=== PATIENT | male | born 1950 | race Caucasian/White ===

== ENCOUNTER 2017-08-18 08:28 | Inpatient (IN) | payer OTHER ==
[~2017-08-18] VITALS: Ht 172.7 cm; Wt 107.2 kg
[2017-08-18] VITALS (7 sets, daily range): BP systolic 113–150; BP diastolic 75–93
--- NOTE | ~2017-08-18 | HC ---
[facility] [place] [address] CONSULTATION Name: ITZ FREEDMAN Room #: 213-P [facility] IN ..#: [id number] Admission: 08/18/17 Attend Phys: Krunal Michelle MD Discharge: Date of : 54 Report #: [id number] THIS REPORT FOR: //name// CC: Hiren Michelle [facility] Cardiology DATE OF SERVICE: 08/18/2017 REASON FOR CONSULTATION: Chest pain. HISTORY OF PRESENT ILLNESS: The patient is a 66-year-old gentleman with history of hypertension and recurrent atrial fibrillation and atrial flutter for which he has been maintained on high doses of propafenone. He has a history of heterozygous factor V Leiden with remote right calf vein deep venous thrombosis. He is now admitted with recurrent episodes of midsternal chest pain. He awakened around 6:30 this morning with a heartburn feeling. This radiated to both sides of his neck and to both arms. This pain lasted for about 30 minutes and resolved spontaneously. The pain recurred several times throughout the morning, each episode lasted between 10 and 20 minutes. One episode of pain was associated with diaphoresis. He was pain free upon arrival to the emergency department where an EKG demonstrated sinus bradycardia and no acute ST or T-wave changes. Troponin was 0.06. He was given a GI cocktail, although was pain free when this GI cocktail was administered. He has had no recurrences since his Emergency Room stay and is now admitted to the coronary care unit. He has had no recent episodes of atrial fibrillation. He thinks his last pharmacologic stress study was done within the past year. He was in a traumatic workplace injury about a year ago, June; he sustained shoulder injury and has had 2 shoulder operations, the most recent one 10 days ago. He is in a sling and immobilizer. There have been no heart failure symptoms. He denies recent paroxysms of atrial fibrillation. No history of near syncope or syncope. ALLERGIES: HE HAS MULTIPLE FOOD ALLERGIES LISTED IN THE MEDICAL RECORD. MEDICATIONS: Include lisinopril 10 mg daily, aspirin, Toprol-XL 75 mg daily, Singulair 10 mg daily, propafenone immediate release 225 mg in the morning, 450 mg at noon and 225 mg at night, Flomax 0.4 mg daily, Neurontin 300 mg in the morning and 900 mg at night, albuterol, aspirin, warfarin 4.5 mg daily. PAST MEDICAL HISTORY: Medical records have been reviewed and include a history of hernia repair, a posterior nasal bleeding requiring surgery, recurrent atrial fibrillation and atrial flutter, factor V Leiden heterozygous, reflux disease, umbilical herniorrhaphy, inguinal herniorrhaphy, rhinoplasty, arthritis. 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 Nonsmoker, [place] [address] CONSULTATION Name: ITZ FREEDMAN Room #: 213-P [facility] IN ..#: [id number] Admission: 08/18/17 Attend Phys: Krunal Michelle MD Discharge: Date of : 54 Report #: [id number] FAMILY HISTORY: Mother had a pacemaker. Father had heart failure in an advanced age. REVIEW OF SYSTEMS: All systems negative except as that noted above. PHYSICAL EXAMINATION: GENERAL: A pleasant gentleman, in no distress. VITAL SIGNS: Blood pressure is 138/90, heart rate 56 and regular. He is afebrile. HEENT: There are neither xanthelasma, subcutaneous xanthomata, oral mucosal or digital cyanosis or kyphoscoliosis present. CHEST: Clear to auscultation and percussion. CARDIAC: Regular rate and rhythm with normal S1, S2. Right arm is an immobilizer. ABDOMEN: Soft and nontender. EXTREMITIES: Without cyanosis, clubbing or edema. Radial pulses are 2+. NEUROLOGIC: Alert with a nonfocal exam. LABORATORY DATA: Sodium is 134, potassium 4.4, creatinine 1.2. Troponin 0.06, followup troponin of 0.15. INR of 1.8. White count 6.1, hemoglobin 15, hematocrit 45, platelet count 192. Chest x-ray is normal. IMPRESSION: 1. Chest pain, possible angina. 2. History of traumatic wall injury in 06/2016. 3. Recent right shoulder surgery. 4. Paroxysmal atrial fibrillation. 5. Hypertension. 6. Factor V Leiden heterozygous. 7. Remote right calf vein thrombosis. 8. Hypercoagulable condition. RECOMMENDATIONS: 1. Serial cardiac enzymes. 2. Hold warfarin for now. Given his right arm and shoulder immobility, pharmacologic stress testing will not be possible. Given the presence of coronary artery calcification seen on remote CT imaging, his symptoms, risk factors, I have recommended proceeding directly with coronary angiography. The procedure was discussed in detail including its associated risks. After a thorough discussion of the procedure, its risks and alternatives, he is agreeable to proceeding. 3. If coronary artery disease is identified, an alternative to a class 1C antiarrhythmic agent will be needed. [facility] [address] [place] [address] CONSULTATION Name: ITZ FREEDMAN Room #: 213-P ADM IN .R.#: [id number] Admission: 08/18/17 Attend Phys: Krunal Michelle MD Discharge: Date of : 54 Report #: [id number] Thank you for asking me to participate in his care. <ELECTRONICALLY SIGNED> By: Chaparro Salas MD, FACC 08/21/17 0852 1359 02 Chaparro Salas MD, FACC /nt
--- NOTE | ~2017-08-18 | EKG ---
[address] [address] ELECTROCARDIOGRAM REPORT Name: ITZ FREEDMAN Room #: 213-P ADM IN M.R.#: [id number] Admission: 08/18/17 Attend Phys: Krunal Michelle MD Discharge: Date of : 54 Report #: [id number] THIS REPORT FOR: //name// 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: KAMILA : 1950 Requested By: Chaparro Salas Order Number: [id number] MD: Chaparro Salas Measurements Intervals [place] Rate: 54 P: 16 CT: 249 QRS: -16 QRSD: 96 T: 123 QT: 510 QTc: 484 Interpretive Statements Sinus rhythm Prolonged CT interval Borderline left axis deviation Borderline low voltage, extremity leads Abnrm T, probable ischemia, anterolateral lds Compared to ECG 08/19/2017 09:34:13 No significant changes Electronically Signed On 08-20-2017 8:42:41 CDT by Chaparro Salas [email or web address] <ELECTRONICALLY SIGNED> By: Chaparro Salas MD, [facility] 08/20/17 0842 0647 0647 Chaparro Salas MD, [facility] /EPI
--- NOTE | ~2017-08-18 | EKG ---
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 : 1950 Requested By: Chaparro Salas Order Number: [id number] MD: Juan Diego Mazariegos Measurements Intervals [place] Rate: 65 P: -55 IL: 271 QRS: -29 QRSD: 112 T: 99 QT: 421 QTc: 438 Interpretive Statements Sinus or ectopic atrial rhythm Prolonged [place] interval Borderline intraventricular conduction delay Borderline repolarization abnormality Baseline wander in lead(s) II,III,aVR,aVF,V2,V6 Compared to ECG 08/18/2017 08:36:44 Ectopic atrial rhythm now present Sinus rhythm no longer present Electronically Signed On 08-19-2017 8:47:12 CDT by Juan Diego Mazariegos [email or web address] <ELECTRONICALLY SIGNED> By: Juan Diego Mazariegos MD 08/19/17846 21 21 Juan Diego Mazariegos MD /EPI
--- NOTE | ~2017-08-18 | EKG ---
[address] [place] [address] ELECTROCARDIOGRAM REPORT Name: ITZ FREEDMAN [id number] Admission: 08/18/17 Attend Phys: Discharge: Date of : 54 Report #: [id number] THIS REPORT FOR: //name// 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 : 1950 Requested By: Sophie Luna Order Number: [id number] MD: Chaparro Salas Measurements Intervals [place] Rate: 58 P: 36 MI: 273 QRS: -16 QRSD: 98 T: 60 QT: 420 QTc: 413 Interpretive Statements Sinus rhythm Prolonged MI interval Borderline left axis deviation Compared to ECG 01/08/2017 06:55:01 No significant changes Electronically Signed On 08-18-2017 11:06:32 CDT by Chaparro Salas [email or web address] <ELECTRONICALLY SIGNED> By: Chaparro Salas MD, [facility] 08/18/17 1106 0836 5 Chaparro Salas MD, FACC /EPI
--- NOTE | ~2017-08-18 | EKG ---
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 <ELECTRONICALLY SIGNED> By: Juan Diego Mazariegos MD 08/19/17 1123 Juan Diego Mazariegos MD /EPI
--- NOTE | ~2017-08-18 | EKG ---
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: KAMILA : 1950 Requested By: Chaparro Salas Order Number: [id number] MD: Chaparro Salas Measurements Intervals [place] Rate: 53 P: 30 ME: 208 QRS: -2 QRSD: 95 T: 121 QT: 496 QTc: 466 Interpretive Statements Sinus bradycardia with first-degree AV block Low voltage, extremity leads Abnrm T, consider ischemia, anterolateral lds Compared to ECG 08/20/2017 06:47:46 No significant change was found Electronically Signed On 08-21-2017 8:07:37 CDT by Chaparro Salas [email or web address] <ELECTRONICALLY SIGNED> By: Chaparro Salas MD, [facility] 08/21/17 0807 0558 0558 Chaparro Salas MD, [facility] /EPI
--- NOTE | ~2017-08-18 | CATHLAB ---
[facility] [address] [place] [address] INVASIVE PROCEDURE REPORT Name: ITZ FREEDMAN Room #: 213-P [facility] IN [facility]#: [id number] Admission: 08/18/17 Attend Phys: Krunal Michelle MD Discharge: Date of : 54 Date of Service: 08/19/17 1023 Report #: [id number] THIS REPORT FOR: //name// APPROVED REPORT Patient Details Patient Status: In-Patient Room #: The patient is a 66 year-old male Event Personnel Chaparro Salas Signals Intelligence Superintendent, Birgit Rehman, Krishna Pfeiffer RN, Oscar Farley Scrub Procedures Performed Art Access - R femoral artery* 47752 Initial Mod Sed Same Phys/QHP Gr5y 328063 74539 Mod Sed Same Phys/QHP Ea 689400 Left Heart Cath w/or w/o Coronaries [id number] [facility] w/wo Plasty Single LAD 092269 Indication Unstable angina Procedure Narrative The patient was brought urgently to the Cardiac Catheterization Laboratory and was prepped and draped in a sterile manner. The Right Groin^ was infiltrated with 1% Lidocaine subcutaneous anesthesia. A PINNACLE 6FR Sheath #[id number] sheath was inserted into the RFA^. Coronary angiography was performed using coronary diagnostic catheters. The right coronary system was accessed and visualized with a 6FR JR 4 #[id number] catheter. The left coronary system was accessed and visualized with a 6FR JL4 #[id number] catheter. The left ventricle was accessed and visualized with a 6FR PIGTAIL 145 ANGLED #[id number] catheter. Left ventricular/Aortic Valve gradient assessed via catheter pullback. Left ventriculogram was performed in 30 degree projection. The patient tolerated the procedure well and there were no complications associated with the procedure. There was no hematoma. Intraoperative Conscious Sedation Sedation start time: 08:13 Case end Time: 08:55 Fentanyl 100.0 mcg Versed 1.0 mg Fluoro Time: 6.00 minutes Dose: DAP 79596.80 cGycm2 1638 mGy [facility] [address] [place] [address] INVASIVE PROCEDURE REPORT Name: ITZ FREEDMAN Room #: 213-P [facility]#: [id number] Admission: 08/18/17 Attend Phys: Krunal Michelle MD Discharge: Date of : 54 Date of Service: 08/19/17 1023 Report #: [id number] Contrast Type and Amount: Omnipaque 210 ml Diagnostic Cath Left Main Normal left main LAD The LAD was a large vessel that extended to the inferoapex. There was a 99% proximal LAD stenosis just after the first diagonal branch Diagonal 1 Moderate in size and angiographically normal Diagonal 2 Small in size and angiographically normal Diagonal 3 Small in size and angiographically normal Circumflex The circumflex was large and codominant OM1 The first marginal branch arose distally and was angiographically normal OM2 The second marginal branch was angiographically normal Right Coronary The right coronary was moderate in size and angiographically normal. Right coronary dominant circulation R PDA The posterior descending was angiographically normal Left Ventriculography The left ventricle is normal in size with normal contractility. The left ventricular ejection fraction is estimated to be 55-60%. Left ventricular wall motion abnormalities are not present. There is no mitral insufficiency. Hemodynamics The aortic pressure is 147/70 mmHg with a mean of 100 mmHg. The left ventricular pressure is 131/13 mmHg with a mean of mmHg. The left ventricular end diastolic pressure is 25 mmHg. Pullback from the left ventricle to the aorta revealed no gradient across the aortic valve. PCI Technique Attention was turned to a severe 99% stenosis involving the proximal LAD. Itz was premedicated with a heparin bolus and single Integrilin bolus. The lesion was predilated with Mazec balloon and then stented with a 3.5 x 15 mm Resolute stent, post-dilated with a 3.5 NC-Trek up to 20ATM. 0% residual stenosis remained with JESSICA-3 flow maintained in the vessel. PCI Technique Lesion Anticoagulation was achieved with Heparin. Percutaneous coronary intervention was performed on the proximal left anterior descending artery segment. The lesion stenosis prior to intervention was 99% with JESSICA 3 flow. A LAUNCHER 6FR EBU 3.5 #[id number] Guide Catheter was used to engage the left main ostium. A Luge Wire .014 x 182CM #[id number] Interventional Guidewire was used to cross the lesion. [address] [address] INVASIVE PROCEDURE REPORT Name: ITZ FREEDMAN Room #: 213-P [facility] IN M.R.#: [id number] Admission: 08/18/17 Attend Phys: Krunal Michelle MD Discharge: Date of : 54 Date of Service: 08/19/17 1023 Report #: [id number] BALLOON DILATION A Balloon catheter Mozec 3.0 x 14 was inserted and inflated up to 7.00atm for 11seconds. Additional Inflation: 10.00atm for 30seconds. STENT DEPLOYMENT A drug-eluting stent RESOLUTE RX 3.5 X 15 #[id number] was inserted and inflated up to 12.00atm for 41seconds. POST STENT DEPLOYMENT BALLOON DILATION A Balloon catheter TREK NC RX 3.5 X 12 #[id number] was inserted and inflated up to 18.00atm for 30seconds. Additional Inflation: 18.00atm for 20seconds. Final angiography reveals 0 % stenosis with JESSICA 3 flow. Conclusion 1. Normal global and regional left ventricular systolic function 2. Normal left main 3. Critical proximal LAD stenosis successfully stented with a 3.5 x 15 mm Resolute medicated stent 4. Normal circumflex and right coronary arteries. This was a right coronary dominant circulation <ELECTRONICALLY SIGNED> By: Chaparro Salas MD, FACC 08/19/17 1023 [facility]3 1023 Chaparro Salas MD, FACC /INF
[~2017-08-18 08:28] MED LIST: ACIDOPHILUS1 EAC3 PO; ANDROGEL2.5 GM TD; ASPIRIN325 PO; ATENOLOL 25MG T25 MG PO; BENTYL 10 MG CA10 MG PO; CENTRUM SILVER1 EAC4 PO; CIALIS20 MG PO; COUMADIN 10MG T10 M1 PO; COUMADIN 1MG TAB1 M1 PO; COUMADIN 4 MG TA4 M1 PO; DOCUSATE SODIU100 MG PO; ENOXAPARIN100 MG/1 M; ENOXAPARIN40 MG/0.1 SUBQ; FEVER FEW PO; FLEXERIL PO; FLOMAX0.4 MG PO; HYDROCODON-ACE1 EAC5 PO; HYDROCODON-ACE1 EACH PO; JANTOVEN4 MG PO; LISINOPRIL10 MG PO; LOVENOX SUBQ; NEURONTIN 300300 M1 PO; NORCO 10-325 T1 EACH PO; PARAFON FORTE500 M2 PO; PHENERGAN 25 MG25 M1 PO; PREDNISONE 20 M20 M1 PO; PROAIR HFA8.5 GM INH; PROPAFENONE 22225 M1 PO; RYTHMOL225 MG PO; SAW PALMETTO500 MG PO; SINGULAIR 10 MG10 M1 PO; VITAMIN C1000 MG PO; VITAMIN D2000 UNIT PO; VOLTAREN GEL 1100 G1 TOP; VOLTAREN GEL 1100 G2 TOP; ZYFLAMEND PO; ZYRTEC10 M2 PO
[2017-08-18 09:19] LABS: ABSOLUTE NEUTROPHILS 4.3 thou/uL (1.4-8.2); BASOPHILS 0.9 % (0.0-2.0); EOSINOPHILS 2.3 % (0.0-3.0); HEMATOCRIT 45.4 % (42.0-52.0); HEMOGLOBIN 15.7 gm/dL (14.0-18.0); LYMPHOCYTES 18.5 % (24.0-44.0); MANUAL DIFF NO; MCH 32.5 pg (26.0-34.0); MCHC 34.7 g/dL (28.0-37.0); MCV 93.5 fL (80.0-100.0); MONOCYTES 8.6 % (1.0-8.0); PLATELET COUNT 192 thou/uL (150-400); POLYS 69.7 % (36.0-66.0); RBC 4.85 mil/uL (4.50-6.00); RDW 12.4 % (10.5-14.5); WBC 6.1 thou/uL (4.0-11.0)
[2017-08-18 09:22] LABS: CALCIUM 9.3 mg/dL (8.5-10.1); CREATININE 1.2 mg/dL (0.7-1.3); POTASSIUM 4.4 mmol/L (3.5-5.1)
[2017-08-18 09:31] LABS: MAGNESIUM 1.8 mg/dL (1.8-2.4); TROPONIN-I 0.06 ng/mL (<0.04-0.07)
[2017-08-18 09:33] LABS: APTT 34.3 Seconds (24.5-32.8); INR 1.8
[2017-08-19] VITALS (12 sets, daily range): BP systolic 128–150; BP diastolic 72–801
[2017-08-19 04:40] LABS: INR 1.8; PROTIME 17.9 Seconds (9.3-11.4)
[2017-08-19 04:41] LABS: APTT 79.5 Seconds (24.5-32.8)
[2017-08-19 04:44] LABS: HEMATOCRIT 42.9 % (42.0-52.0); HEMOGLOBIN 14.8 gm/dL (14.0-18.0); MCH 32.3 pg (26.0-34.0); MCHC 34.4 g/dL (28.0-37.0); RBC 4.57 mil/uL (4.50-6.00); RDW 12.6 % (10.5-14.5); WBC 7.4 thou/uL (4.0-11.0)
[2017-08-19 04:49] LABS: CHOLESTEROL 197 mg/dL (<200); HDL CHOLESTEROL 34 mg/dL (>40); LDL CHOLESTEROL 141 mg/dL (<100); SERUM ASSESSMENT Clear; TC:HDL 5.8 Ratio (Not establshd); TRIGLYCERIDE 112 mg/dL (<150); VLDL 22 mg/dL (<40)
[2017-08-19 04:53] LABS: CALCIUM 8.8 mg/dL (8.5-10.1); TROPONIN-I 0.28 ng/mL (<0.04-0.07)
[2017-08-20 03:49] VITALS: BP 125/79
[2017-08-20 03:49] LABS: HEMATOCRIT 41.3 % (42.0-52.0); HEMOGLOBIN 14.2 gm/dL (14.0-18.0); MCH 32.3 pg (26.0-34.0); MCHC 34.3 g/dL (28.0-37.0); MCV 94.2 fL (80.0-100.0); RBC 4.39 mil/uL (4.50-6.00); RDW 12.4 % (10.5-14.5); WBC 7.2 thou/uL (4.0-11.0)
[2017-08-20 04:15] LABS: ANION GAP 11 mmol/L (7-16); BUN 12 mg/dL (7-18); CALCIUM 8.4 mg/dL (8.5-10.1); CHLORIDE 106 mmol/L (98-107); CHOLESTEROL 187 mg/dL (<200); CO2 23 mmol/L (21-32); GLUCOSE 90 mg/dL (74-106); HDL CHOLESTEROL 33 mg/dL (>40); LDL CHOLESTEROL 135 mg/dL (<100); POTASSIUM 4.1 mmol/L (3.5-5.1); SODIUM 140 mmol/L (136-145); TC:HDL 5.7 Ratio (Not establshd); TRIGLYCERIDE 98 mg/dL (<150); TROPONIN-I 0.11 ng/mL (<0.04-0.07); VLDL 20 mg/dL (<40)
[2017-08-20 04:17] LABS: SERUM ASSESSMENT Clear
[2017-08-20 07:20] VITALS: BP 135/85
[2017-08-20 10:10] LABS: INR 1.4
[2017-08-20 11:30] VITALS: BP 151/80; BP 181/80
[2017-08-20 15:20] VITALS: BP 147/91
[2017-08-20 19:19] VITALS: BP 140/86
[2017-08-20 22:15] VITALS: BP 140/86
[2017-08-21 03:30] VITALS: BP 132/74
[2017-08-21 04:13] LABS: INR 1.2; PROTIME 12.3 Seconds (9.3-11.4)
[2017-08-21 04:21] LABS: ALBUMIN 2.9 g/dL (3.4-5.0); CALCIUM 8.8 mg/dL (8.5-10.1); POTASSIUM 3.9 mmol/L (3.5-5.1)
[2017-08-21 08:17] VITALS: BP 133/81
[2017-08-21] MEDS ORDERED: CLOPIDOGREL75 MG PO (09:28)
[2017-08-21] MEDS ORDERED: SOTALOL 120 MG120 MG PO (09:29)
[2017-08-21 09:35] VITALS: BP 133/81
== END 2017-08-21 12:00 | disposition home or self-care (01) | DRG 247 ==
LOC: ER 08:28 → 2N 12:17 → EROBS 12:17 → 2N 12:49 → ENTRNSPT 08-21 11:45 → 2N 08-21 12:00 → EDTRNSPTSTS 08-21 12:06
PROVIDERS: Emergency Medicine; Hospitalist; Internal Medicine
PROC: 027034Z Dilation of Coronary Artery, One Artery with Drug-eluting Intraluminal Device, Percutaneous Approach (ICD-10-PCS; principal; 2017-08-19)
PROC: 4A023N7 Measurement of Cardiac Sampling and Pressure, Left Heart, Percutaneous Approach (ICD-10-PCS; 2017-08-19)
PROC: B2111ZZ Fluoroscopy of Multiple Coronary Arteries using Low Osmolar Contrast (ICD-10-PCS; 2017-08-19)
PROC: B2151ZZ Fluoroscopy of Left Heart using Low Osmolar Contrast (ICD-10-PCS; 2017-08-19)
DX: I21.4 Non-ST elevation (NSTEMI) myocardial infarction (principal); I48.92 Unspecified atrial flutter; D68.59 Other primary thrombophilia; I25.110 Atherosclerotic heart disease of native coronary artery with unstable angina pectoris; I48.0 Paroxysmal atrial fibrillation; M19.90 Unspecified osteoarthritis, unspecified site; I10 Essential (primary) hypertension; E78.5 Hyperlipidemia, unspecified; K21.9 Gastro-esophageal reflux disease without esophagitis; H91.92 Unspecified hearing loss, left ear; Z88.5 Allergy status to narcotic agent; Z88.8 Allergy status to other drugs, medicaments and biological substances; Z91.040 Latex allergy status; Z86.718 Personal history of other venous thrombosis and embolism; Z79.01 Long term (current) use of anticoagulants; Z79.82 Long term (current) use of aspirin; Z91.018 Allergy to other foods; Z82.49 Family history of ischemic heart disease and other diseases of the circulatory system
CPT/HCPCS: 10081

== ENCOUNTER 2018-04-25 16:49 | Emergency (ER) | payer OTHER ==
[~2018-04-25] VITALS: Ht 172.7 cm; Wt 111.1 kg
--- NOTE | ~2018-04-25 | EKG ---
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: [place] : 1950 Requested By: Art Crocker Order Number: [id number] MD: Kurt Pedersen Measurements Intervals [place] Rate: 60 P: 22 GA: 209 QRS: -18 QRSD: 82 T: 44 QT: 436 QTc: 436 Interpretive Statements Sinus rhythm Borderline left axis deviation Compared to ECG 08/21/2017 05:58:48 Sinus bradycardia no longer present Possible ischemia no longer present Electronically Signed On 04-26-2018 11:35:57 CDT by Kurt Pedersen [email or web address] <ELECTRONICALLY SIGNED> By: Kurt Pedersen MD 04/26/18 1135 1718 17 Kurt Pedersen MD /BESSIE
[~2018-04-25 16:49] MED LIST changes: +CLOPIDOGREL75 MG PO; +SOTALOL 120 MG120 MG PO
[2018-04-25 17:10] LABS: URINE BILIRUBIN NEGATIVE (Negative); URINE BLOOD 3+ (Negative); URINE CLARITY CLOUDY; URINE COLOR YELLOW; URINE GLUCOSE-RANDOM* NEGATIVE (Negative); URINE KETONES NEGATIVE (Negative); URINE LEUKOCYTES-REFLEX NEGATIVE (Negative); URINE NITRITE-REFLEX NEGATIVE (Negative); URINE PROTEIN (DIPSTICK) 1+ (Negative); URINE SPECIFIC GRAVITY >= 1.030 (1.005-1.035); URINE UROBILINOGEN 0.2 E.U./dl (0.2-1.0)
[2018-04-25 17:12] LABS: BACTERIA-REFLEX None Seen /HPF (None Seen); CASTS None Seen /LPF (None Seen); CRYSTALS None Seen /LPF (None Seen); SQUAMOUS 4-10 Moderate /LPF (0-3); URINE RBC >20 Many /HPF (0-2); URINE WBC-REFLEX None Seen /HPF (0-5)
[2018-04-25] MEDS ORDERED: ROXICODONE5 M2 PO (17:53)
[2018-04-25 18:40] LABS: ABSOLUTE NEUTROPHILS 4.5 thou/uL (1.4-8.2); BASOPHILS 0.6 % (0.0-2.0); HEMATOCRIT 44.7 % (42.0-52.0); HEMOGLOBIN 15.5 gm/dL (14.0-18.0); LYMPHOCYTES 20.8 % (24.0-44.0); MCH 32.6 pg (26.0-34.0); MCHC 34.6 g/dL (28.0-37.0); MONOCYTES 8.4 % (1.0-8.0); PLATELET COUNT 171 thou/uL (150-400); POLYS 67.2 % (36.0-66.0); RBC 4.76 mil/uL (4.50-6.00); RDW 13.2 % (10.5-14.5); WBC 6.6 thou/uL (4.0-11.0)
[2018-04-25 18:49] LABS: ANION GAP 8 mmol/L (7-16); BUN 14 mg/dL (7-18); CHLORIDE 106 mmol/L (98-107); CO2 27 mmol/L (21-32); GLUCOSE 117 mg/dL (74-106); POTASSIUM 4.1 mmol/L (3.5-5.1); SODIUM 141 mmol/L (136-145)
[2018-04-25 18:58] LABS: ALBUMIN 3.5 g/dL (3.4-5.0); LIPASE 98 U/L (73-393); SGOT 29 U/L (15-37); SGPT 41 U/L (30-65); TOTAL BILIRUBIN 0.6 mg/dL (<0.1-1.0); TOTAL PROTEIN 6.9 g/dL (6.4-8.2); TROPONIN-I < 0.04 ng/mL (<0.06)
[2018-04-25 19:00] LABS: APTT 40.4 Seconds (24.5-32.8); INR 2.8; PROTIME 28.5 Seconds (9.3-11.4)
== END 2018-04-25 20:38 | disposition home or self-care (01) ==
LOC: ER 16:49
PROVIDERS: Emergency Medicine
DX: N20.1 Calculus of ureter (principal); F31.9 Bipolar disorder, unspecified; I48.91 Unspecified atrial fibrillation; K21.9 Gastro-esophageal reflux disease without esophagitis; M19.90 Unspecified osteoarthritis, unspecified site; I10 Essential (primary) hypertension; Z88.8 Allergy status to other drugs, medicaments and biological substances

== ENCOUNTER → 2020-02-02 | Outpatient (CLI) | payer OTHER ==
[~2020-02-02] VITALS: Ht 172.7 cm; Wt 108.9 kg
[~2020-02-02] MED LIST changes: +ALLOPURINOL 10100 M3 PO; +DANDELION ROOT PO; +MAGNESIUM400 MG PO; +NEURONTIN 300M300 M2 PO; +PROBIOTIC1 EAC7 PO; +ROXICODONE5 M2 PO; +SYMBICORT160 MCG/4. INH; +TESSALON PERLE100 M1 PO; +TIZANIDINE HCL4 M1 PO; +VITAMIN B12-FO1 EAC1 PO; +XARELTO20 MG PO; +ZETIA10 MG PO
[2020-02-02 13:00] VITALS: BP 120/75
--- NOTE | 2020-02-02 13:20 | NUR ---
Pain Clinic Assessment: 1. History of Osteoarthritis: BACK NECK HANDS FEET History of Rheumatoid Arthritis: Not Applicable 2. Height: 5 ft. 8 in. 172.7 cm. Weight: 240.0 lb. oz. 108.864 kg. Patient's BMI: 36.5 3. Vital Signs: BP: 120/75 Pulse: 65 Resp: 16 Temp: 02 Sat: 100 ECG Mon: 4. Pain Intensity: 3 5. Fall Risk: Dizziness: Y Needs help standing or walking: Y Fallen in the last 3 months: Y Fall risk comments: 6. Patient on Blood Thinner: XARELTO 7. History of Hypertension: Y 8. Opioid Therapy greater than 6 weeks: N Opiate Contract Signed: 9. Risk Assessment Tool Provided: LOW-0 10. Functional Assessment Tool: 11. Recreational Drug Use: Never Drug Type: Tobacco Use: Never Smoker Tobacco Type: Amount or Packs/day: How Many Years: Alcohol Use: Yes Frequency: Special Occasions Quant:
--- NOTE | 2020-02-03 12:44 | HPC ---
[facility] [place] [address] PAIN MANAGEMENT CONSULTATION Name: ITZ FREEDMAN Room #: REG LAST FairLedaGregorioLeda#: [id number] Admission: 02/02/20 Attend Phys: Leon Houston DO Discharge: Date of : 54 Report #: [id number] THIS REPORT FOR: cc: Hiren Baeza,Hiren Dee,Leon Iyer DO ~ DATE OF SERVICE: 02/02/2020 REFERRING PHYSICIAN: Dr. Rory Baeza. CHIEF COMPLAINT: Low back pain. HISTORY OF PRESENT ILLNESS: As you know, the patient is a 69-year-old male with longstanding history of low back pain issues. The patient has had on and off back pain for years. He has been seen by pain management in the past and received injection therapy. He has also been evaluated by Neurosurgery, but advised he is not a candidate at this time for surgical options. He has been trialing [id number] medication and rest and relaxation, but unfortunately, this has not improved symptoms. He reported to his primary care physician an acute exacerbation of symptoms happened in 12/2019. He denies injury or trauma that may have led to symptom development. Due to lack of improvement with conservative treatment options and continued back issues, he was sent for imaging of the lumbar spine. The findings were such in the imaging that the patient was referred to our clinic to discuss interventional treatment options. The patient reports today 02/02/2020, his pain is steady and constant. He describes the pain as sharp and stabbing. He places current pain score 3/10, daily average at 5/10, worst pain has been is 9/10. The patient states that any activity tends to exacerbate symptoms, nothing has improved symptoms. He has been referred to our service to discuss interventional treatment options for low back pain. PAST MEDICAL HISTORY: 1. Hypertension. 2. Coronary artery disease. 3. Chronic liver disease. 4. Degenerative joint disease. 5. Osteoarthritis. 6. Basal cell carcinoma. 7. Atrial fibrillation. 8. Chronic obstructive lung disease. 9. Irritable bowel syndrome. PAST SURGICAL HISTORY: [facility] [address] [place] [address] PAIN MANAGEMENT CONSULTATION Name: ITZ FREEDMAN Room #: REG [facility] Alejandro#: [id number] Admission: 02/02/20 Attend Phys: Leon Houston DO Discharge: Date of : 54 Report #: [id number] 1. Herniorrhaphy. 2. Vasectomy. 3. Rhinoplasty. SOCIAL HISTORY: The patient denies current tobacco use, denies IV or illicit drug use. Denies any chronic alcohol use. He is retired. He retired years ago, not receiving workmen's compensation nor is he trying to obtain disability benefits. He is not in litigation in regards to pain. He is unaccompanied at today's visit. REVIEW OF SYSTEMS: Positive for headaches, wearing corrective eyewear, hearing loss with tinnitus, chronic sinus problems with rhinitis, nosebleeds, sore throat, voice changes, heart trouble, palpitations, sexual difficulty, history of kidney stones, rash and itching, changes in hair and nail texture, frequent and recurrent headaches, lightheadedness and dizziness, numbness and tingling sensations, tremors, heat and cold intolerance, bleeding and bruising tendencies, enlarged glands. All other review of systems negative per 12-point review of systems other than those listed in history of present illness. Pain impact score 33/70 indicating moderate interference of daily activities secondary to pain. ALLERGIES: FLUTICASONE, ATORVASTATIN, ACETAMINOPHEN, NAPROXEN, ADHESIVE TAPE, TRAMADOL, CELECOXIB. CURRENT MEDICATIONS: Zetia 10 mg once a day, metoprolol 50 mg per day, Xarelto 20 mg per day, magnesium oxide 400 mg twice a day, gabapentin 900 mg in the evening and 300 mg in the morning, Singulair 10 mg per day, lisinopril 10 mg once a day, Voltaren gel applied topically as necessary, Cialis 20 mg once a day, Symbicort 1 puff each day, tamsulosin 0.4 mg per day, allopurinol 100 mg per day, tizanidine 4 mg p.r.n., benzonatate 100 mg once a day, hydrocodone 10/325 one tab every evening p.r.n. pain. IMAGING: MRI lumbar spine obtained 01/10/2020 shows moderate to severe degenerative lumbar spine disease with multilevel neural foraminal stenosis noted most at the L4-L5 and L5-S1 level. There is central canal stenosis, greatest at the L3-L4 level with dimension of the AP diameter 9 mm. PQRS: The patient has known arthritic changes of the lumbar spine, bilateral knees, bilateral hands and feet. He does not suffer from rheumatoid arthritis. He is placing pain intensity today 3/10. He is a fall risk, has had a fall in last 3 months, but does not utilize any type of ambulatory device. He is on Xarelto and has not discontinued his medication. He is treated for hypertension. He is not on chronic opioids, has a low opioid addiction potential. Pain impact score 33/70, moderate interference of daily activities secondary to pain. [address] [address] PAIN MANAGEMENT CONSULTATION Name: ITZ FREEDMAN Room #: REG [facility] ManjulaGregorio#: [id number] Admission: 02/02/20 Attend Phys: Leon Houston DO Discharge: Date of : 54 Report #: [id number] PHYSICAL EXAMINATION: VITAL SIGNS: Blood pressure 120/75, pulse 65, respiratory rate 16 and unlabored. The patient is 100% on room air. Height 5 feet 8 inches tall, weight 240 pounds, BMI calculated 36.5. GENERAL: Well-developed, well-nourished, well-hydrated exogenously obese 69-year-old male appearing stated age, pain is rated today 3/10. HEENT: Normocephalic, atraumatic. Pupils equal, round, reactive to light. Extraocular muscles are intact. Sclerae nonicteric without injection. NEUROLOGIC: Cranial nerves 2-12 grossly intact. Speech fluent. The patient deemed a good historian. LUNGS: Clear, no wheezes, rhonchi or rales. CARDIOVASCULAR: Regular. No appreciable gallop, no rub. ABDOMEN: Soft, obese, normoactive bowel sounds. EXTREMITIES: Show no clubbing, no cyanosis, and no edema. MUSCULOSKELETAL: Lower extremity strength appears equal and symmetrical 5/5, intact to light touch from L1 through S2 dermatomes. Seated straight leg raising negative. Supine straight leg raising positive. Arturo's test is negative. Modified Gaenslen's positive for axial low back pain. Ankle clonus negative. Babinski is negative. Gait appears normal. He displays pain with lumbar provocation including extension, rotation, and lateral flexion. ASSESSMENT: 1. Symptomatic lumbar radiculopathy. 2. Spinal stenosis of lumbar spine. 3. Displacement of lumbar intervertebral disk with radiculopathy. 4. Lumbosacral spondylosis with radiculopathy. 5. Neural foraminal stenosis of the lumbar spine. 6. Facet arthropathy of the lumbar spine. 7. Lumbar degeneration. 8. Chronic intractable pain. PLAN: 1. Based on today's physical exam and the history the patient has provided, the description the patient uses in regards to pain as well as the distribution of symptoms, likely source of the patient's symptoms is a lumbar radiculopathy. We discussed with the patient treatment options available for lumbar radicular symptoms after reviewing his MRI, which shows changes, most consistent at the L4-L5 level with the severe neural foraminal stenosis bilaterally. After this review of the MRI, we discussed the treatment options we have available. Following was discussed with the patient today. We discussed physical therapy, stretching exercises, core strengthening and a concerted effort at weight loss to treat symptoms. We discussed medication management, making changes in his medications to address neuropathic pain either increasing his gabapentin rotating to Lyrica, Cymbalta, nortriptyline or amitriptyline based on side effects. We discussed epidural injection, for which [address] [address] PAIN MANAGEMENT CONSULTATION Name: ITZ FREEDMAN Room #: REG CLArtie Allen#: [id number] Admission: 02/02/20 Attend Phys: Leon Houston DO Discharge: Date of : 54 Report #: [id number] the patient was referred to our clinic. We also discussed spinal cord stimulator and ultimately surgical options. After reviewing the risks and benefits of all the proposed treatment options, the patient chose to begin with an epidural injection under fluoroscopic guidance. 2. Due to third green party payer restrictions, authorization will have to be obtained before the patient could undergo a lumbar epidural injection. Authorization could take anywhere from 4-7 working days. We will begin this process immediately. We are hopeful the patient will have a chance to undergo the procedure quickly in hopes of improving overall pain. The patient was advised to contact our clinic in the next couple of days to determine the progress for the authorization. Once this has been achieved, we will have the patient return as quickly as possible to undergo the procedure. 3. No medication changes made at today's visit. The patient will continue current medical therapy as previously prescribed. 4. We will see the patient back in followup visit once authorization has been obtained to undergo this requested lumbar epidural injection. We will establish the appointment once we have this authorization. At that time, the patient will come off his Xarelto for 3 days prior to the procedure. This is based on the SHARI guidelines. The patient will need to gain clearance from the prescribing physician to be able to come off the Xarelto to undergo the procedure. 5. We wish to thank the referring physician, Dr. Shree Castillo for the opportunity to see this patient in consultation. We will keep you apprised of his response to treatment as we address his chronic axial back pain and lower extremity symptoms. Again, we wish to thank you for the opportunity to see the patient in consultation. <ELECTRONICALLY SIGNED> By: Leon Houston DO 02/03/20 [id number] [id number] Leon Houston DO /nt
== END ==
LOC: PAIN 06:53
DX: M51.16 Intervertebral disc disorders with radiculopathy, lumbar region (principal); M48.061 Spinal stenosis, lumbar region without neurogenic claudication; M47.27 Other spondylosis with radiculopathy, lumbosacral region; M46.86 Other specified inflammatory spondylopathies, lumbar region; G89.29 Other chronic pain; I48.91 Unspecified atrial fibrillation; J44.9 Chronic obstructive pulmonary disease, unspecified; I10 Essential (primary) hypertension; I25.10 Atherosclerotic heart disease of native coronary artery without angina pectoris; M19.90 Unspecified osteoarthritis, unspecified site; Z88.8 Allergy status to other drugs, medicaments and biological substances; Z68.36 Body mass index [BMI] 36.0-36.9, adult; Z79.899 Other long term (current) drug therapy; Z85.828 Personal history of other malignant neoplasm of skin

== ENCOUNTER → 2020-02-10 | Outpatient (CLI) | payer OTHER ==
[~2020-02-10] VITALS: Ht 172.7 cm; Wt 111.6 kg
[2020-02-10 13:47] VITALS: BP 125/78
--- NOTE | 2020-02-10 13:49 | NUR ---
Pain Clinic Assessment: 1. History of Osteoarthritis: BACK NECK HANDS FEET History of Rheumatoid Arthritis: Not Applicable 2. Height: 5 ft. 8 in. 172.7 cm. Weight: 246.0 lb. oz. 111.585 kg. Patient's BMI: 37.4 3. Vital Signs: BP: 125/78 Pulse: 73 Resp: 18 Temp: 02 Sat: 98 ECG Mon: 4. Pain Intensity: 8 5. Fall Risk: Dizziness: N Needs help standing or walking: N Fallen in the last 3 months: N Fall risk comments: 6. Patient on Blood Thinner: XARELTO 7. History of Hypertension: Y 8. Opioid Therapy greater than 6 weeks: N Opiate Contract Signed: 9. Risk Assessment Tool Provided: LOW-0 10. Functional Assessment Tool: 11. Recreational Drug Use: Never Drug Type: Tobacco Use: Never Smoker Tobacco Type: Amount or Packs/day: How Many Years: Alcohol Use: Yes Frequency: Quant:
--- NOTE | 2020-02-16 09:15 | HPC ---
[address] [address] PAIN MANAGEMENT CONSULTATION Name: ITZ FREEDMAN Room #: REG LAST FairLedaGregorioLeda#: [id number] Admission: 02/10/20 Attend Phys: Leon Houston DO Discharge: Date of : 54 Report #: [id number] THIS REPORT FOR: cc: Hiren Baeza,Leon Murillo DO ~ CC: Hiren Gutierres DATE OF SERVICE: 02/10/2020 REFERRING PHYSICIAN: Hiren Baeza DO CHIEF COMPLAINT: Low back pain, right lower extremity pain with paresthesias. HISTORY OF PRESENT ILLNESS: As you know, the patient is a very pleasant 69-year-old male who returns today in followup visit to undergo first in a series of lumbar epidural injections under fluoroscopic guidance. We have received authorization for the patient to undergo the procedure and he has stopped his Eliquis 3 days prior to today's injection to undergo the procedure itself. He is reporting pain today as exacerbated as he had bent over and caused an increase in pain. He is now placing pain score at 8/10. He states pain is sharp and stabbing in sensation, exacerbated with standing, walking, sitting in chairs and improves with repositioning, and lying down. He has returned today in followup visit, off his anticoagulant in preparation to undergo lumbar epidural injection under fluoroscopic guidance. The patient denies any new injury or trauma other than this bending over incident which may have exacerbated symptoms. ALLERGIES: FLUTICASONE, ATORVASTATIN, ACETAMINOPHEN, NAPROXEN, ADHESIVE TAPE, TRAMADOL, AND CELECOXIB. CURRENT MEDICATIONS: See chart. SOCIAL HISTORY: The patient denies current tobacco use. Denies IV or illicit drug use. Denies any chronic alcohol use. He is retired, retired years ago, unaccompanied in today's visit. IMAGING: No new imaging available. PQRS: The patient has known arthritic changes of the lumbar spine, bilateral knees, bilateral hands and feet. He does not have a diagnosis of rheumatoid arthritis. He is placing current pain score at 8/10. He is not a fall risk, has not had a fall in last 3 months. He is on blood thinner in the form of Xarelto, but has discontinued the medication 3 days prior to today's procedure. [address] [address] PAIN MANAGEMENT CONSULTATION Name: REJIJosepITZ Room #: REG [facility]#: [id number] Admission: 02/10/20 Attend Phys: Leon Houston DO Discharge: Date of : 54 Report #: [id number] He is treated for hypertension and is not on any opioids. He has a low opiate addiction potential. Pain impact score 33/70 indicating moderate interference of daily activities secondary to pain. PHYSICAL EXAMINATION: VITAL SIGNS: Blood pressure 125/78, pulse 73, respiratory rate 18 and unlabored. The patient is 98% on room air. Height 5 feet 8 inches tall, weight 246 pounds, BMI calculated 37.4. GENERAL: Well-developed, well-nourished, well-hydrated exogenously obese 69-year-old male appearing stated age, pain is rated today 8/10. HEENT: Normocephalic, atraumatic. Pupils equal, round, reactive to light. EXTREMITIES: Show no clubbing, no cyanosis, no edema. MUSCULOSKELETAL: Lower extremity strength appears symmetrical again today 5/5, intact to light touch from L1 through S2 dermatomes. Seated straight leg raising is negative. Supine straight leg raising is positive on the right. Arturo's test is negative. Modified Gaenslen's positive for axial low back pain. ASSESSMENT: 1. Symptomatic lumbar radiculopathy. 2. Spinal stenosis of the lumbar spine. 3. Displacement of lumbar intervertebral disk with radiculopathy. 4. Lumbosacral spondylosis with radiculopathy. 5. Neural foraminal stenosis of the lumbar spine. 6. Facet arthropathy of the lumbar spine. 7. Lumbar degeneration. 8. Chronic intractable pain. PLAN: 1. The patient returns today in followup visit having discontinued his Xarelto in preparation for today's epidural injection. We have also received authorization for the patient to undergo the procedure. He has been advised risks and benefits of a lumbar epidural injection. These risks include but are not necessarily limited to bleeding, bruising, infection, worsening pain, no relief of pain, also risk of temporary or permanent muscle weakness, temporary or permanent nerve damage, possible paralysis and . The patient states he understood and wished to proceed. 2. No medication changes made at today's visit. We have recommended the patient restart his Xarelto today and return to use of his 81 mg aspirin per day as well. No other changes in medication management were made today. 3. We will see the patient back in followup visit in approximately 30 days. At that time, review efficacy of today's epidural injection and determine if next in the series of epidural injections might be recommended. PROCEDURE NOTE DESCRIPTION OF PROCEDURE: L5-S1 right parasagittal epidural steroid injection [address] [address] PAIN MANAGEMENT CONSULTATION Name: ITZ FREEDMAN Room #: REG LAST Allen#: [id number] Admission: 02/10/20 Attend Phys: Leon Houston DO Discharge: Date of : 54 Report #: [id number] under fluoroscopic guidance. This is the first procedure of the first series that the patient is undergoing. After obtaining written consent, the patient was taken back to the fluoroscopy suite, placed in a prone position with pillow under the abdomen to decrease lumbar lordosis. The skin overlying the lumbosacral area was then prepped and draped in aseptic fashion. The L5-S1 vertebral interspace was then identified by AP fluoroscopy. The skin and subcutaneous tissue overlying the target site of injection was anesthetized with 3 mL 1% lidocaine. A 20-gauge 3-1/2 inch Tuohy needle was then advanced under fluoroscopic guidance towards the epidural space using a right parasagittal approach. The epidural space was identified using loss of resistance to air technique. After negative aspiration for heme or cerebrospinal fluid, a total of 1 mL of Omnipaque was injected. A lumbar epidurogram was confirmed using both AP and lateral fluoroscopy. After negative aspiration for heme or cerebrospinal fluid, 5 mL of a solution containing 2 mL 40 mg per mL, 80 mg total triamcinolone along with 3 mL lidocaine 1% was injected in increments. Contrast spread was noted posterior epidural space. The needle was then retracted approximately half way and needle tract flushed with 1 mL of lidocaine. Needle was then removed. There were no apparent sensory or motor deficits in the lower extremity following the procedure. A sterile bandage was placed over the injection site. The heart rate, pulse, oximetry and blood pressure were continuously monitored after the procedure. There were no apparent complications. The patient tolerated the procedure well and was carefully escorted to the recovery room in stable condition. There were no apparent complications. After meeting discharge criteria, the patient was then discharged home. <ELECTRONICALLY SIGNED> By: Leon Houston DO 02/16/20 0915 [id number] Leon Houston DO /nt
== END | disposition home or self-care (01) ==
LOC: PAIN 06:54
DX: M51.16 Intervertebral disc disorders with radiculopathy, lumbar region (principal); M47.27 Other spondylosis with radiculopathy, lumbosacral region; M47.26 Other spondylosis with radiculopathy, lumbar region; M48.061 Spinal stenosis, lumbar region without neurogenic claudication; G89.29 Other chronic pain; Z98.890 Other specified postprocedural states; Z79.899 Other long term (current) drug therapy; Z79.01 Long term (current) use of anticoagulants; Z88.8 Allergy status to other drugs, medicaments and biological substances